=== PATIENT | female | born 1990 | race Caucasian/White ===

== ENCOUNTER 2024-05-16 10:44 | Emergency (ER) | payer OTHER ==
[2024-05-16 10:58] VITALS: BP 120/80; PULSE 94; RESP 20; TEMP 98.8; BMI 36.3
== END 2024-05-16 12:01 | disposition home or self-care (01) ==
LOC: FER 10:44
PROC: 0XQKXZZ Repair Left Hand, External Approach (ICD-10-PCS; principal; 2024-05-16)
DX: S61.412A Laceration without foreign body of left hand, initial encounter (principal); W25.XXXA Contact with sharp glass, initial encounter
CPT/HCPCS: 73130-TC-LT-FY; 99283-25